=== PATIENT | male | born 1965 | race American Indian/Alaskan Native ===

== ENCOUNTER 2017-06-11 09:43 | Day surgery (SDC) | payer OTHER ==
[2017-06-10 12:30] LABS: BASOPHILS # (AUTO) 0.1 X10'3 (0-0.2); BASOPHILS % (AUTO) 0.8 % (0-1); EOSINOPHILS # (AUTO) 0.3 X10'3 (0-0.9); EOSINOPHILS % (AUTO) 2.7 % (0-6); HEMATOCRIT 35.9 % (42.0-52.0); HEMOGLOBIN 12.5 g/dl (14.0-17.9); LYMPHOCYTES # (AUTO) 2.7 X10'3 (1.1-4.8); LYMPHOCYTES % (AUTO) 25.6 % (21-51); MEAN CORPUSCULAR HEMOGLOBIN 29.8 PG (27.0-31.0); MEAN CORPUSCULAR HGB CONC 34.9 % (33.0-36.5); MEAN CORPUSCULAR VOLUME 85.4 FL (78-98); MONOCYTES # (AUTO) 0.7 X10'3 (0-0.9); MONOCYTES % (AUTO) 6.9 % (2-12); NEUTROPHILS # (AUTO) 6.7 X10'3 (1.8-7.7); PLATELET COUNT 284 X10'3 (140-440); WHITE BLOOD COUNT 10.4 X10'3 (4.5-11.0)
[2017-06-10 12:38] LABS: PROTHROMBIN TIME 10.5 SECONDS (9.0-12.0)
[2017-06-10 12:42] LABS: ALBUMIN 2.4 G/DL (3.4-5.0); ANION GAP 6 (8-16); BLOOD UREA NITROGEN 28 MG/DL (7-18); BUN/CREATININE RATIO 19.3 (5.4-32.0); CALCIUM 8.9 MG/DL (8.5-10.1); CHLORIDE 107 MMOL/L (99-107); CREATININE 1.45 MG/DL (0.60-1.10); GLUCOSE 96 MG/DL (70-104); POTASSIUM 4.2 MMOL/L (3.5-5.1); SODIUM 141 MMOL/L (135-145); TOTAL CARBON DIOXIDE 28.4 MMOL/L (24-32); eGFR 51 ML/MIN
[2017-06-11] VITALS (25 sets, daily range): BP systolic 73–128; BP diastolic 33–75
[~2017-06-11] VITALS: Ht 182.9 cm; Wt 135.9 kg
[2017-06-11] MEDS ORDERED: morphine 4 MG/ML inj SYRINge IV ONE (10:25)
[2017-06-11] MEDS ORDERED: diphenhydrAMINE 25mg capsule PO ONE (10:25)
[2017-06-11] MEDS ORDERED: normal saline 1000ml 1,000 ML IV SCH (10:25)
[2017-06-11] MEDS ORDERED: LORazepam 0.5 MG tablet PO ONE (10:25)
[2017-06-11] MEDS ORDERED: atropine 0.1mg/ml 10ml syringe IV ONE (10:25)
[2017-06-11] MEDS ORDERED: morphine 10mg/ml inj. IV ONE (10:25)
[2017-06-11] MEDS ORDERED: amiodarone in dextrose, iso-osm 150mg/100ml bag IV ONE (10:25)
[2017-06-11] MEDS ORDERED: MIDAZolam 5mg/ml 2ml vial IV ONE (10:25)
[2017-06-11] MEDS ORDERED: ASPI81TA52 PO (10:41)
[2017-06-11] MEDS ORDERED: APIX5TAB3 PO (10:42)
[2017-06-11] MEDS ORDERED: ATOR40TA PO (10:42)
[2017-06-11] MEDS ORDERED: GLIP5TAB13 PO (10:43)
[2017-06-11] MEDS ORDERED: HYDR25TA4 PO (10:45)
[2017-06-11] MEDS ORDERED: LISI1TAB11 PO (10:50)
[2017-06-11] MEDS ORDERED: METF500T PO (10:52)
[2017-06-11] MEDS ORDERED: LISINOPRIL PO (10:52)
[2017-06-11] MEDS ORDERED: METO100T14 PO (10:53)
[2017-06-11] MEDS ORDERED: DILT240C33 PO (10:55)
[2017-06-11] MEDS ORDERED: LIDOcaine 1% (10mg/ml) 2ml vial ONE (11:17)
== END 2017-06-11 15:10 | disposition home or self-care (01) ==
LOC: SSTAY O 09:43 → EDSTATUS 12:30 → EDBD 12:30 → SSTAY O 15:10
PROVIDERS: ATTEND Internal Medicine Cardiovascular Disease
DX: I48.1 Persistent atrial fibrillation (principal); I48.92 Unspecified atrial flutter; E11.9 Type 2 diabetes mellitus without complications; E66.01 Morbid (severe) obesity due to excess calories; E78.5 Hyperlipidemia, unspecified; I10 Essential (primary) hypertension; G47.33 Obstructive sleep apnea (adult) (pediatric); I08.0 Rheumatic disorders of both mitral and aortic valves; Z79.82 Long term (current) use of aspirin; Z79.84 Long term (current) use of oral hypoglycemic drugs; Z79.01 Long term (current) use of anticoagulants; Z87.891 Personal history of nicotine dependence; Z72.89 Other problems related to lifestyle; Z68.41 Body mass index [BMI] 40.0-44.9, adult; Z79.899 Other long term (current) drug therapy
CPT/HCPCS: 36415; 80048; 82948; 85025; 85610; 92960; 93005; 93312; J0282; J0461; J2250; J2270; J3490; J7030; Q0163; A4620

== ENCOUNTER 2018-02-08 08:00 | Inpatient (IN) | payer OTHER ==
[~2018-02-08] VITALS: Ht 182.9 cm; Wt 137.0 kg
[~2018-02-08 08:00] MED LIST: APIX5TAB3 PO; ASPI81TA52 PO; ATOR40TA PO; DILT240C33 PO; GLIP5TAB13 PO; HYDR25TA4 PO; LISINOPRIL PO; METF500T PO; METO100T14 PO
[2018-02-08 20:00] VITALS: BP 191/83
[2018-02-08] MEDS ORDERED: magnesium hydroxide 30ml (MOM) UD suspension PO PRN (20:55)
[2018-02-08] MEDS ORDERED: MESSAGE TO PHARMACY PO ONE (20:55)
[2018-02-08] MEDS ORDERED: dextrose 50%-water 50ml dispensing syringe IV PRN ×2 (20:55)
[2018-02-08] MEDS ORDERED: HYDROcodone/acetaminophen 5mg/325mg tablet PO PRN (20:55)
[2018-02-08] MEDS ORDERED: ondansetron/PF 4mg/2ml inj IV PRN (20:55)
[2018-02-08] MEDS ORDERED: glucagon, human recombinant 1mg kit SUBCUT PRN (20:55)
[2018-02-08] MEDS ORDERED: dextrose ORAL solution 15 GM/59 ML bottle PO PRN ×2 (20:55)
[2018-02-08] MEDS ORDERED: acetaminophen 325mg tablet PO PRN ×2 (20:55)
[2018-02-08] MEDS ORDERED: mag hydrox/Alum hydrox/simeth 30ml oral suspension PO PRN (20:55)
[2018-02-08] MEDS: furosemide 40mg/4ml inj IV SCH (22:22)
[2018-02-08] MEDS: cloNIDine 0.1 mg tablet PO SCH (22:22)
[2018-02-08] MEDS: insulin glargine (Lantus) pen - multi-dose SQ SCH (23:04)
[2018-02-09 05:01] LABS: BASOPHILS # (AUTO) 0.1 X10'3 (0-0.2); BASOPHILS % (AUTO) 1.2 % (0-1); EOSINOPHILS # (AUTO) 0.2 X10'3 (0-0.9); EOSINOPHILS % (AUTO) 3.4 % (0-6); HEMATOCRIT 31.6 % (42.0-52.0); HEMOGLOBIN 10.1 g/dl (14.0-17.9); LYMPHOCYTES # (AUTO) 1.2 X10'3 (1.1-4.8); LYMPHOCYTES % (AUTO) 18.1 % (21-51); MEAN CORPUSCULAR HEMOGLOBIN 28.2 PG (27.0-31.0); MEAN CORPUSCULAR HGB CONC 31.9 % (33.0-36.5); MEAN CORPUSCULAR VOLUME 88.2 FL (78-98); MEAN PLATELET VOLUME 8.9 FL (7.4-10.4); MONOCYTES # (AUTO) 0.7 X10'3 (0-0.9); MONOCYTES % (AUTO) 10.1 % (2-12); NEUTROPHILS # (AUTO) 4.5 X10'3 (1.8-7.7); NEUTROPHILS % (AUTO) 67.2 % (42-75); PLATELET COUNT 219 X10'3 (140-440); RED BLOOD COUNT 3.58 X10'6 (4.70-6.10); RED CELL DISTRIBUTION WIDTH 15.5 % (11.5-14.5); WHITE BLOOD COUNT 6.7 X10'3 (4.5-11.0)
[2018-02-09 05:23] LABS: ALBUMIN 1.5 G/DL (3.4-5.0); ANION GAP 8 (8-16); BLOOD UREA NITROGEN 49 MG/DL (7-18); BUN/CREATININE RATIO 15.4 (5.4-32.0); CALCIUM 7.8 MG/DL (8.5-10.1); CHLORIDE 110 MMOL/L (99-107); CREATININE 3.19 MG/DL (0.60-1.10); GLUCOSE 149 MG/DL (70-104); MAGNESIUM 2.1 MG/DL (1.5-2.4); PHOSPHORUS 4.7 MG/DL (2.3-4.5); POTASSIUM 4.2 MMOL/L (3.5-5.1); SODIUM 144 MMOL/L (135-145); TOTAL CARBON DIOXIDE 26.3 MMOL/L (24-32); eGFR 21 ML/MIN
[2018-02-09 05:27] LABS: HEMOGLOBIN A1C 10.9 % (4.5-6.2)
[2018-02-09 08:00] VITALS: BP 161/59
[2018-02-09] MEDS ORDERED: DILTIAZEM HCL PO SCH (08:00)
[2018-02-09] MEDS ORDERED: non-formulary drug (Metoprolol Tartrate 1 TAB) PO SCH (08:00)
[2018-02-09] MEDS ORDERED: non-formulary drug (Atorvastatin Calcium* (Lipitor*) 1 TAB) PO SCH (08:00)
[2018-02-09] MEDS: furosemide 40mg/4ml inj IV SCH ×2 (09:02→20:15)
[2018-02-09] MEDS: metoprolol tartrate 50mg tablet PO SCH ×2 (09:03→20:00)
[2018-02-09] MEDS: aspirin 81mg tablet.DR PO SCH (09:03)
[2018-02-09] MEDS: diltiazem CD 120mg capsule (once-daily) PO SCH (09:03)
[2018-02-09] MEDS: apixaban 5mg tablet PO SCH ×2 (09:04→20:15)
[2018-02-09] MEDS: cloNIDine 0.1 mg tablet PO SCH ×3 (09:04→21:00)
[2018-02-09] MEDS: atorvastatin 20mg tablet PO SCH (09:04)
[2018-02-09 12:00] VITALS: BP 162/67
[2018-02-09] MEDS: insulin Lispro (HumaLOG) vial - multi-dose SQ SCH ×2 (13:20→19:11)
[2018-02-09] MEDS: losartan 50mg tablet PO SCH (17:40)
[2018-02-09 18:15] LABS: CLARITY,URINE SLIGHTLY CLOUDY (Clear); COLOR,URINE STRAW (Yellow); GLUCOSE, URINE 250 mg/dl (Neg); KETONES,URINE NEGATIVE (Neg); LEUKOCYTE ESTERASE ,URINE NEGATIVE (Neg); NITRITES, URINE NEGATIVE (Neg); OCCULT BLOOD,URINE TRACE-LYSED (Neg); PROTEIN,URINE >=300 mg/dl (Neg); UROBILINOGEN,URINE 0.2 E.U/dL (0.2-1.0)
[2018-02-09 18:29] LABS: UA COLLECTION TYPE CLN CATCH MIDSTREAM
[2018-02-09 18:30] LABS: BACTERIA,URINE NONE SEEN /HPF (Neg); HYALINE CASTS 0-3 /LPF (NEGATIVE); MUCUS STRANDS NONE SEEN /LPF (Neg); RBC,URINE 0-2 /HPF (0-2); SQUAMOUS EPITHELIAL CELL,UR FEW /LPF (FEW); TOTAL PROTEIN,URINE RANDOM 473.4 MG/DL; TRANSITIONAL EPI CELLS,URINE FEW /HPF; WAXY CASTS,URINE 0-3 /LPF (NEGATIVE); WBC,URINE 0-4 /HPF (0-4)
[2018-02-09 20:00] VITALS: BP 145/63
[2018-02-09] MEDS: insulin glargine (Lantus) pen - multi-dose SQ SCH (21:03)
[2018-02-09] MEDS: hyDRALAzine 10mg tablet PO SCH (21:04)
[2018-02-09] MEDS: nystatin 15 GM powder TP SCH (21:04)
[2018-02-10] VITALS: BP 138/60
[2018-02-10] MEDS: hyDRALAzine 10mg tablet PO SCH ×3 (02:41→13:54)
[2018-02-10 02:42] VITALS: BP 178/75
[2018-02-10 05:52] LABS: BASOPHILS % (AUTO) 0.7 % (0-1); EOSINOPHILS # (AUTO) 0.3 X10'3 (0-0.9); EOSINOPHILS % (AUTO) 4.2 % (0-6); HEMATOCRIT 30.1 % (42.0-52.0); HEMOGLOBIN 9.9 g/dl (14.0-17.9); LYMPHOCYTES # (AUTO) 1.4 X10'3 (1.1-4.8); LYMPHOCYTES % (AUTO) 21.4 % (21-51); MEAN CORPUSCULAR HEMOGLOBIN 28.8 PG (27.0-31.0); MEAN CORPUSCULAR VOLUME 87.3 FL (78-98); MEAN PLATELET VOLUME 9.5 FL (7.4-10.4); MONOCYTES # (AUTO) 0.5 X10'3 (0-0.9); MONOCYTES % (AUTO) 7.4 % (2-12); NEUTROPHILS # (AUTO) 4.5 X10'3 (1.8-7.7); NEUTROPHILS % (AUTO) 66.3 % (42-75); PLATELET COUNT 203 X10'3 (140-440); RED BLOOD COUNT 3.44 X10'6 (4.70-6.10); RED CELL DISTRIBUTION WIDTH 15.3 % (11.5-14.5); WHITE BLOOD COUNT 6.8 X10'3 (4.5-11.0)
[2018-02-10 06:05] LABS: ALBUMIN 1.6 G/DL (3.4-5.0); ANION GAP 11 (8-16); BLOOD UREA NITROGEN 47 MG/DL (7-18); CALCIUM 8.3 MG/DL (8.5-10.1); CHLORIDE 106 MMOL/L (99-107); CREATININE 3.13 MG/DL (0.60-1.10); GLUCOSE 115 MG/DL (70-104); PHOSPHORUS 4.6 MG/DL (2.3-4.5); POTASSIUM 4.1 MMOL/L (3.5-5.1); SODIUM 143 MMOL/L (135-145); TOTAL CARBON DIOXIDE 25.8 MMOL/L (24-32); eGFR 21 ML/MIN
[2018-02-10 07:10] VITALS: BP 150/53
[2018-02-10 08:00] VITALS: BP 166/67
[2018-02-10] MEDS: losartan 50mg tablet PO SCH (08:08)
[2018-02-10] MEDS: furosemide 40mg/4ml inj IV SCH (08:09)
[2018-02-10] MEDS: apixaban 5mg tablet PO SCH (08:09)
[2018-02-10] MEDS: nystatin 15 GM powder TP SCH ×2 (08:09→13:55)
[2018-02-10] MEDS: atorvastatin 20mg tablet PO SCH (08:09)
[2018-02-10] MEDS: diltiazem CD 120mg capsule (once-daily) PO SCH (08:09)
[2018-02-10] MEDS: cloNIDine 0.1 mg tablet PO SCH ×2 (08:09→13:54)
[2018-02-10] MEDS: aspirin 81mg tablet.DR PO SCH (08:09)
[2018-02-10] MEDS: insulin Lispro (HumaLOG) vial - multi-dose SQ SCH ×2 (08:22→13:59)
[2018-02-10 10:38] VITALS: BP 166/67
[2018-02-10 11:00] VITALS: BP 167/68
[2018-02-10] MEDS ORDERED: LOSA50TA21 PO (13:01)
[2018-02-10] MEDS ORDERED: FURO-150 PO (13:01)
[2018-02-11 08:31] LABS: HEPATITIS C ANTIBODY <0.1 s/co ratio (0.0-0.9)
[2018-02-12 05:27] LABS: COMPLEMENT C3, SERUM 169 mg/dL (82-167); COMPLEMENT C4, SERUM 28 mg/dL (14-44)
== END 2018-02-10 17:15 | disposition home or self-care (01) | DRG 699 ==
LOC: SUR 3N 08:00 → CMPBEDREQ 22:45
PROVIDERS: ADMIT Family Medicine; ATTEND Internal Medicine
DX: E11.21 Type 2 diabetes mellitus with diabetic nephropathy (principal); I13.0 Hypertensive heart and chronic kidney disease with heart failure and stage 1 through stage 4 chronic kidney disease, or unspecified chronic kidney disease; E87.1 Hypo-osmolality and hyponatremia; E11.22 Type 2 diabetes mellitus with diabetic chronic kidney disease; E11.319 Type 2 diabetes mellitus with unspecified diabetic retinopathy without macular edema; N18.4 Chronic kidney disease, stage 4 (severe); E11.42 Type 2 diabetes mellitus with diabetic polyneuropathy; E11.65 Type 2 diabetes mellitus with hyperglycemia; D64.9 Anemia, unspecified; E78.5 Hyperlipidemia, unspecified; E87.8 Other disorders of electrolyte and fluid balance, not elsewhere classified; I48.91 Unspecified atrial fibrillation; I50.9 Heart failure, unspecified; Z79.01 Long term (current) use of anticoagulants; Z79.84 Long term (current) use of oral hypoglycemic drugs; Z89.429 Acquired absence of other toe(s), unspecified side; Z79.899 Other long term (current) drug therapy; Z79.82 Long term (current) use of aspirin
CPT/HCPCS: 36415; 76775; 80048; 81001; 82570; 82595; 82948; 83036; 83735; 84100; 84133; 84156; 84300; 85025; 85300; 85301; 85651; 86160; 86803; 87070; 93306; 93970; G0378; J1815; J1940

== ENCOUNTER 2018-10-25 13:42 | Day surgery (SDC) | payer OTHER ==
[~2018-10-25] VITALS: Ht 182.9 cm; Wt 123.6 kg
[~2018-10-25 13:42] MED LIST changes: +FURO-150 PO; -HYDR25TA4 PO; -LISINOPRIL PO; +LOSA50TA64 PO
[2018-10-25] MEDS ORDERED: MIDAZolam 5mg/ml 2ml vial IV ONE (14:20)
[2018-10-25] MEDS ORDERED: fentaNYL/PF 50MCG/1 ML 2ML syringe IV ONE (14:20)
[2018-10-25] MEDS ORDERED: normal saline 1000ml 1,000 ML IV SCH (14:20)
== END 2018-10-25 14:40 | disposition home or self-care (01) ==
LOC: SSTAY O 13:42 → EDSTATUS 17:00
PROVIDERS: ATTEND Internal Medicine Interventional Cardiology
DX: I48.91 Unspecified atrial fibrillation (principal); Z53.8 Procedure and treatment not carried out for other reasons; N18.4 Chronic kidney disease, stage 4 (severe); E11.22 Type 2 diabetes mellitus with diabetic chronic kidney disease; G47.33 Obstructive sleep apnea (adult) (pediatric); I12.9 Hypertensive chronic kidney disease with stage 1 through stage 4 chronic kidney disease, or unspecified chronic kidney disease; Z79.01 Long term (current) use of anticoagulants; Z79.899 Other long term (current) drug therapy
CPT/HCPCS: 93005; J7030

== ENCOUNTER 2018-12-20 13:51 | Day surgery (SDC) | payer OTHER ==
[~2018-12-20] VITALS: Ht 182.9 cm; Wt 132.4 kg
[2018-12-20] MEDS ORDERED: normal saline 1000ml 1,000 ML IV SCH (14:25)
[2018-12-20] MEDS ORDERED: MIDAZolam 5mg/ml 2ml vial IV PRN (14:25)
[2018-12-20] MEDS ORDERED: fentaNYL/PF 50MCG/1 ML 2ML syringe IV PRN (14:25)
[2018-12-20] MEDS ORDERED: POTA10TA19 PO (14:28)
[2018-12-20] MEDS ORDERED: PROP150T2 PO (14:28)
[2018-12-20] MEDS ORDERED: CHOL500050 PO (14:28)
[2018-12-20] MEDS ORDERED: METO100T14 PO (14:28)
[2018-12-20] MEDS ORDERED: FURO40TA4 PO (14:28)
[2018-12-20] MEDS ORDERED: ZAR2.5T PO (14:28)
[2018-12-20 14:31] VITALS: BP 203/99
[2018-12-20] MEDS ORDERED: cloNIDine 0.1 mg tablet PO ONE (15:30)
--- NOTE | 2018-12-20 15:33 | NUR ---
patients blood pressure was 224/113, called dr. moctezuma after sending over the patients EKG, Trixie from his office called back and stated he said to give 0.1 clonidine po now and recheck blood pressure after 10 minutes, and to call back with blood pressure. Cardioversion procedure cancelled per dr. moctezuma, and he wants to see him in his office today for a holter monitor. Telephone orders verified.
--- NOTE | 2018-12-20 16:37 | NUR ---
Dc'ed 1629, left for dr. alicea office to tack picker a holter monitor.
== END 2018-12-20 16:20 | disposition home or self-care (01) ==
LOC: SSTAY O 13:51
PROVIDERS: ATTEND Internal Medicine Interventional Cardiology
DX: I48.91 Unspecified atrial fibrillation (principal); Z53.8 Procedure and treatment not carried out for other reasons; G47.33 Obstructive sleep apnea (adult) (pediatric); E11.22 Type 2 diabetes mellitus with diabetic chronic kidney disease; I12.9 Hypertensive chronic kidney disease with stage 1 through stage 4 chronic kidney disease, or unspecified chronic kidney disease; N18.4 Chronic kidney disease, stage 4 (severe); G47.30 Sleep apnea, unspecified; Z79.899 Other long term (current) drug therapy; Z79.84 Long term (current) use of oral hypoglycemic drugs; Z79.82 Long term (current) use of aspirin
CPT/HCPCS: 93005; J7030